=== PATIENT | female | born 1960 | race Caucasian/White ===

== ENCOUNTER → 2022-03-11 | Day surgery (SDC) | payer OTHER ==
[~2022-03-11] MED LIST: Lactated Ringers 1,000 ML IV ONE; Lidocaine 1% PF 2 ML SDV INJECT ONE; Propofol 200 MG/20 ML SDV IV ONE
== END ==
LOC: JD.SDS 06:00
DX: Z12.11 Encounter for screening for malignant neoplasm of colon (principal); K57.30 Diverticulosis of large intestine without perforation or abscess without bleeding; K64.4 Residual hemorrhoidal skin tags; K62.1 Rectal polyp; K63.5 Polyp of colon; E78.5 Hyperlipidemia, unspecified; F41.9 Anxiety disorder, unspecified; Z88.0 Allergy status to penicillin; Z88.2 Allergy status to sulfonamides; Z79.899 Other long term (current) drug therapy; Z88.1 Allergy status to other antibiotic agents
CPT/HCPCS: 45380; J2704; J7120; 00812